=== PATIENT | female | born 1980 | race Caucasian/White ===

== ENCOUNTER 2016-04-30 07:49 | Emergency (ER) | payer OTHER ==
--- NOTE | 2016-04-30 09:05 | ER NURSING DOCUMENTATION ---
Nurse's Notes [facility] Name:Rosie Crawford Age:35 yrs Sex:Female :1980 Arrival Date:04/30/2016 Time:07:49 Bed6 Private MD: Diagnosis:Rib Fracture Presentation: 04/30 08:00 Acuity: [facility] 4 st 08:00 Presenting complaint: Patient states: pt states she slipped on the ice yesterday and st fell on her left side. pt has had left sided rib pain since. The pain is worst with deep breathing, coughing and laughing. Transition of care: Home. Care prior to arrival: None. 08:00 Method Of Arrival: Private Vehicle st 08:07 Notified ED Physician of Dr. Romero notified. st Triage Assessment: 08:00 General: Appears in no apparent distress, Behavior is cooperative. Pain: Complains of st pain in left lateral posterior chest and left lateral anterior chest Pain currently is 4 out of 10 on a pain scale. Aggravated by coughing laughing and deep breathing. Neuro: No deficits noted. Cardiovascular: No deficits noted. Respiratory: Airway is patent Respiratory effort is even, unlabored, shallow, Respiratory pattern is regular, symmetrical, Breath sounds are clear bilaterally. Reports pain with cough pain with respiration. GI: No deficits noted. Historical: - Allergies: Morphine; methotrexate (PF); - Home Meds: 1. None - PMHx: ARTHRITIS; - PSHx: ; Cholecysectomy; - Tetanus: < 10 years. - Ebola Screening: : Patient denies exposure to infectious person. Patient denies travel to an Ebola-affected area in the 21 days before illness onset. . - Social history: Smoking status: Patient states was never smoker of tobacco. Patient uses alcohol but reports only rare drinking. Screenin:24 Infectious Disease Risk None. Abuse screen: Denies threats or abuse. Denies injuries st from another. pt feels safe at home. Nutritional screening: No deficits noted. Assessment: 09:03 General: pt did not want any pain medications. . st Vital Signs: 08:00 BP 120 / 87; Pulse 86; Resp 20; Temp 98.1; Pulse Ox 96% on R/A; Pain 4/10; st ED Course: 07:51 Patient arrived in ED. ds 08:00 TwombBarb joiner, RN is Primary Nurse. st 08:[address] 08:05 Patient moved to radiology. pm1 08:10 Patient moved back from radiology. pm1 08:13 Juno Romero MD is Attending Physician. wa 08:24 Valuables Remains with patient Patient has correct armband on for positive st identification. Bed in low position. Administered Medications: No medications were administered Outcome: 08:58 Discharge ordered by . wa 09:04 Discharged to home ambulatory. st 09:04 Condition: stable 09:04 Discharge instructions given to patient, Instructed on discharge instructions, follow up and referral plans. medication usage, [facility] 09:04 Patient [address] ED[address] st 03/14 10:14 Discharge F/U Call: Unable to reach: non-working number sj Signatures: Barb Santana RN RN st Srot, Maureen, Reg Reg ds Juno Romero MD MD wa Alan Kang pm1 Betty Younger sj
--- NOTE | 2016-04-30 09:05 | ER PHYSICIAN DOCUMENTATION ---
Physician Documentation [facility] Name:Rosie Crawford Age:35 yrs Sex:Female :1980 Arrival Date:04/30/2016 Time:07:49 Bed6 Private MD: Juno Justin Disposition: 04/30/16 08:58 Discharged to Home/Self Care. Impression: Rib Fracture. - Condition is Good. - Discharge Instructions: RIB FRACTURE - FRACTURE, Rib. - Medical Reconciliation form form. - Follow up: Private Physician; When: As needed; Reason: Worsening of condition. - Problem is new. - Symptoms are unchanged. HPI: 04/30 08:58 This 35 yrs old Female presents to ER via Private Vehicle with complaints of sc Fall Injury - RIB PAIN. 08:58 Details of fall: The patient fell from an upright position, while walking. Onset: The sc symptom(s)/episode began/occurred yesterday. Associated injuries: The patient sustained injury to the chest. Associated signs and symptoms: Pertinent positives: chest pain, Loss of consciousness: the patient experienced no loss of consciousness. Severity of symptoms: At their worst the symptoms were moderate. Historical: - Allergies: Morphine; methotrexate (PF); - Home Meds: 1. None - PMHx: ARTHRITIS; - PSHx: ; Cholecysectomy; - Tetanus: < 10 years. - Ebola Screening: : Patient denies exposure to infectious person. Patient denies travel to an Ebola-affected area in the 21 days before illness onset. . - Social history: Smoking status: Patient states was never smoker of tobacco. Patient uses alcohol but reports only rare drinking. ROS: 08:59 Constitutional: Negative for fever, chills, and weight loss. sc Eyes: Negative for injury, pain, redness, and discharge. Neck: Negative for injury, pain, and swelling. Respiratory: Negative for shortness of breath, cough, wheezing, and pleuritic chest pain. Back: Negative for injury and pain. MS/Extremity: Negative for injury and deformity. Skin: Negative for injury, rash, and discoloration. 08:59 Neuro: Negative for headache, weakness, numbness, tingling, and seizure. sc 08:59 Cardiovascular: Positive for chest pain, with cough, with movement. Exam: Constitutional: This is a well developed, well nourished patient who is awake, alert, and in no acute distress. Head/Face: Normocephalic, atraumatic. Neck: Trachea midline, no thyromegaly or masses palpated, and no cervical lymphadenopathy. Supple, full range of motion without nuchal rigidity, or vertebral point tenderness. No meningismus. Cardiovascular: Regular rate and rhythm with a normal S1 and S2. No gallops, murmurs, or rubs. Normal PMI, no JVD. No pulse deficits. Back: No spinal tenderness. No costovertebral tenderness. Full range of motion. Skin: Warm, dry with normal turgor. Normal color with no rashes, no lesions, and no evidence of cellulitis. 08:59 Neuro: Awake and alert, GCS 15, oriented to person, place, time, and situation. sc Cranial nerves II-XII grossly intact. Motor strength 5/5 in all extremities. Sensory grossly intact. Cerebellar exam normal. Normal gait. 08:59 Chest/axilla: Inspection: normal, Palpation: tenderness, that is moderate, of the left lateral posterior chest and left lateral anterior chest, that totally reproduces the patient's complaints. Vital Signs: 08:00 BP 120 / 87; Pulse 86; Resp 20; Temp 98.1; Pulse Ox 96% on R/A; Pain 4/10; st MDM: 08:30 Patient medically screened. or 09:00 Differential diagnosis: contusion, fracture. Data reviewed: vital signs, nurses notes, sc radiologic studies, plain films, and as a result, I will discharge patient. Counseling: I had a detailed discussion with the patient and/or guardian regarding: the historical points, exam findings, and any diagnostic results supporting the discharge/admit diagnosis, radiology results, the need for outpatient follow up, to return to the emergency department if symptoms worsen or persist or if there are any questions or concerns that arise at home, pt declined narcotics or incentive spirometer. Dispensed Medications: No medications were administered Signatures: Barb Santana RN RN st Chew, Scott, MD MD or
--- NOTE | 2016-04-30 14:29 | RADIOLOGY REPORT ---
Two views of the chest, without prior films for comparison, demonstrate the heart, vessels and lungs to be unremarkable. No infiltrate, fluid or pneumothorax is seen. IMPRESSION: Unremarkable two views of the chest. MTDD
== END 2016-04-30 09:05 | disposition home or self-care (01) ==
LOC: ER 07:49
DX: S22.32XA Fracture of one rib, left side, initial encounter for closed fracture (principal); W19.XXXA Unspecified fall, initial encounter; Y93.01 Activity, walking, marching and hiking
CPT/HCPCS: 71020; 99283